=== PATIENT | female | born 1985 | race Caucasian/White ===

== ENCOUNTER 2020-01-01 08:37 | Inpatient (IN) | payer BC ==
[~2020-01-01 08:37] MED LIST: Carboprost Tromethamine 250 MCG/1 ML Amp IM PRN; Lactated Ringers 1,000 ML IV ONE; Lidocaine 1% 30 ML SDV INJECT PRN; Methylergonovine 0.2 MG/1 ML Amp IM PRN; Misoprostol 400 MCG (4 X 100 MCG TAB) RECTAL PRN; Misoprostol 50 MCG (1/2 of 100 MCG) Tab VAG PRN; Ondansetron 4 MG/2 ML SDV IVPUSH PRN; Oxytocin/Normal Saline 30 UNIT/500 ML BAG IV SCH; Sodium Chloride 0.9% 10 ML Syringe FLUSH PRN; Tranexamic Acid 1,000 MG in Sodium Chloride 0.9% 100 ML IV PRN
[2020-01-01] MEDS: Lactated Ringers 1,000 ML IV SCH ×4 (15:01→18:29)
[2020-01-01] MEDS ORDERED: EPINEPHrine 1 MG/1 ML Amp ONE (16:20)
[2020-01-01] MEDS ORDERED: fentaNYL 100 MCG/2 ML SDV ONE (16:20)
[2020-01-01] MEDS ORDERED: Sodium Bicarbonate 4.2% 2.5 MEQ/5 ML SDV ONE (16:21)
[2020-01-01] MEDS ORDERED: ePHEDrine 50 MG/ML SDV ONE ×2 (16:33→17:17)
--- NOTE | 2020-01-01 16:46 | PCM.SN.2 ---
- Free Text/Narrative Note: Intrathecal. Sitting position, sterile prep and drape. 1% lidocaine w bicarb for skinwheal to L2 L3 interspace, introducer, 24 ga pencan x 1. Pos CSF, neg heme, neg parasthesia. 0.1 ml pf 1:1000 epi, 20 mcg pf sufenta, 30 mcg pf fentanyl, 0.4 ml pf ns and 6 mg of 0.75% marcaine injected after CSF aspiration. Pt to L lateral position. Procedure time 1625 to 1650
--- NOTE | 2020-01-01 19:08 | PCM.LDHP ---
L&D History of Present Illness - General Date of Service: 01/01/20 (admit H&P) Admit Problem/Dx: Patient Status Order with Admit Dx/Problem 01/01/20 08:00 Patient Status [ADT] Routine Admission Diagnosis/Problem Admission Diagnosis/Problem complications Source of Information: Patient, Family, Old Records, RN History Limitations: Reports: No Limitations - History of Present Illness Introduction:: 34yo WF in @ 39w1d for induction of labor as scheduled. Hx difficult VAVD with prolonged 2nd stage, and baby large for her pelvis. she is ready for induction and has no further questions. see notes and episode for further details. Location, : Reports: Uterus - Related Data Allergies/Adverse Reactions: Allergies Allergy/AdvReac Type Severity Reaction Status Date / Time No Known Allergies Allergy Verified 04/26/15 13:34 Home Medications: Home Meds Eletriptan Hydrobromide [Relpax] 40 mg PO DAILY 04/26/15 [History] Vit No.130/Iron/Folic [ Vitamins] 1 each PO DAILY 04/26/15 [History] Acetaminophen/HYDROcodone [[place] 325-10 MG] 1 tab PO Q4H PRN #15 tablet 04/28/15 [Rx] Docusate Sodium [Colace] 100 mg PO BID PRN #0 cap 04/28/15 [Rx] Ibuprofen [Motrin] 800 mg PO Q8H PRN #30 tablet 04/28/15 [Rx] Vit with Ca/FA/Iron [ Plus Iron] 1 each PO DAILY tablet 04/28/15 [Rx] Ascorbic Acid [Vitamin C] 250 mg PO DAILY 01/01/20 [History] Cholecalciferol (Vitamin D3) [Vitamin D] 5,000 unit PO DAILY 01/01/20 [History] Ferrous Sulfate 325 mg PO DAILY 01/01/20 [History] Past Medical History [employer] History: Reports: : 2 Para: 1 LMP (Approximate): Other OB/BYN History: one prior VAVD - Infectious Disease History Infectious Disease History: Reports: Other (See Below) Other Infectious Disease History: susceptible to varicella - Past Surgical History HEENT Surgical History: Reports: Other (See Below) Other HEENT Surgeries/Procedures: Migraines Social & Family History - Tobacco Use Tobacco Use Status *Q: Never Tobacco User Second Hand Smoke Exposure: No - Caffeine Use Caffeine Use: Reports: Coffee, Soda - Recreational Drug Use Recreational Drug Use: No - Living Situation & Occupation Living situation: Reports: , with Family Occupation: Employed (lives with Felix--Ron Stahl III, and thier first son, Norman (Ron Stahl IV) expecting another boy. 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 L&D Exam - Exam Exam: See Below - Vital Signs Vital Signs: Last Vital Signs Temp 98.1 F 01/01/20 17:30 Pulse 71 01/01/20 18:00 Resp 16 01/01/20 18:00 BP 104/77 01/01/20 18:00 Pulse Ox 97 01/01/20 16:40 Weight: 178 lb - OB Specific Contraction Duration (sec): 50-70 Contraction Frequency (min): 3-6 Contraction Intensity: Moderate - Reyna Score Reyna Score Cervix Position: Midposition Reyna Score Consistency: Medium Reyna Score Effacement: 51-70% Reyna Score Dilation: 1-2 cm - Exam General: Alert, Oriented HEENT: Conjunctiva Clear, EOMI, Hearing Intact, Mucosa Moist & [place], Nares Patent, PERRLA Neck: Supple, Trachea Midline Lungs: Clear to Auscultation, Normal Respiratory Effort Cardiovascular: Regular Rate, Regular Rhythm GI/Abdominal Exam: Normal Bowel Sounds, Soft, Non-Tender, No Abnormal Bruit, Pel vis Stable, Mass Rectal Exam: Normal Exam, Deferred Genitourinary: Normal external exam, Cervical dilitation, Enlarged uterus, Vaginal discharge Back Exam: Normal Inspection, Full Range of Motion Extremities: Normal Inspection, Normal Range of Motion, Non-Tender, No Pedal Edema, Normal Capillary Refill Skin: Warm, Dry, Intact Neurological: Cranial Nerves Intact, Reflexes Equal Bilateral Psychiatric: Alert, Normal Affect, Normal Mood - Patient Data Lab Results Last 24 hrs: Laboratory Results - last 24 hr 01/01/20 01/01/20 Range/Units 09:15 09:18 WBC 9.5 (5.0-10.0) 10^3/uL RBC 4.36 (4.2-5.4) 10^6/uL Hgb 12.4 D (12.0-16.0) g/dL Hct 37.0 (37.0-47.0) % MCV 84.9 D (80-100) fL MCH 28.4 (27.0-34.0) pg MCHC 33.5 (33.0-35.0) g/dL Plt Count 194 (150-450) 10^3/uL SARS CoV-2 RNA Rapid MARCIN Negative (NEGATIVE) Result Diagrams: 01/01/20 09:18 - Problem List (1) Term SNOMED Code(s): 14175436 ICD Code: Z34.90 - ENCNTR FOR SUPRVSN OF NORMAL , UNSP, UNSP TRIMESTER Status: Acute Current Visit: Yes (2) Immune to varicella SNOMED Code(s): 901006535 ICD Code: Z78.9 - OTHER SPECIFIED HEALTH STATUS Status: Acute Current Visit: Yes (3) Rubella non-immune status, antepartum SNOMED Code(s): 768576702 ICD Code: O99.891 - OTH DISEASES AND CONDITIONS COMPLICATING ; Z28.3 - UNDERIMMUNIZATION STATUS Status: Acute Current Visit: Yes (4) Rubella nonimmune status, delivered, current hospitalization SNOMED Code(s): 370518245 ICD Code: O99.892 - OTH DISEASES AND CONDITIONS COMPLICATING CHILDBIRTH; Z28.3 - UNDERIMMUNIZATION STATUS Status: Acute Current Visit: Yes (5) Blood type A+ SNOMED Code(s): 936083351 ICD Code: Z67.10 - TYPE A BLOOD, RH POSITIVE Status: Acute Current Visit: Yes (6) Group B Streptococcus not isolated SNOMED Code(s): 426131613 ICD Code: LPA3425 - Status: Acute Current Visit: Yes (7) Mother currently breast-feeding SNOMED Code(s): 115694341 ICD Code: Z39.1 - ENCOUNTER FOR CARE AND EXAMINATION OF LACTATING MOTHER Status: Acute Current Visit: Yes Problem List Initiated/Reviewed/Updated: Yes Orders Last 24hrs: Active Orders 24 hr Category Date Time Status Patient Status [ADT] Routine ADT 01/01/20 08:00 Active Communication Order [RC] ASDIRECTED Care 01/01/20 08:00 Active Communication Order [RC] ASDIRECTED Care 01/01/20 08:00 Active Communication Order [RC] ASDIRECTED Care 01/01/20 08:00 Active Communication Order [RC] ASDIRECTED Care 01/01/20 08:00 Active Communication Order [RC] ASDIRECTED Care 01/01/20 08:00 Active Communication Order [RC] ASDIRECTED Care 01/01/20 08:00 Active Monitoring [RC] PER UNIT ROUTINE Care 01/01/20 08:00 Active Insert Urinary Catheter [OM.PC] Q24H Care 01/01/20 18:00 Ordered Notify Provider Vital Signs OB [RC] ASDIRECTED Care 01/01/20 08:00 Active Notify Provider [RC] PRN Care 01/01/20 08:00 Active Notify Provider [RC] PRN Care 01/01/20 08:00 Active Notify Provider [RC] PRN Care 01/01/20 08:00 Active Notify Provider [RC] STAT Care 01/01/20 08:00 Active Pump Management, Intrathecal [RC] ASDIRECTED Care 01/01/20 08:00 Active Up ad Fide [RC] ASDIRECTED Care 01/01/20 08:00 Active Urinary Catheter Assessment [RC] ASDIRECTED Care 01/01/20 18:25 Active Vaginal Exam [RC] PRN Care 01/01/20 08:00 Active Acetaminophen [TylenoL] Med 01/01/20 08:00 Active 650 mg PO Q4H PRN Carboprost Tromethamine [Hemabate DS] Med 01/01/20 08:00 Active 250 mcg IM ASDIRECTED PRN Lidocaine 1% [Xylocaine-MPF 1%] Med 01/01/20 08:00 Active 30 ml INJECT ASDIRECTED PRN Methylergonovine [Methergine] Med 01/01/20 08:00 Active 0.2 mg IM ASDIRECTED PRN Ondansetron [Zofran] Med 01/01/20 08:00 Active 4 mg IVPUSH Q4H PRN Oxytocin/Normal Saline [Pitocin in NS 30 UNIT/500 ML] Med 01/01/20 08:00 Active 30 unit in 500 ml IV TITRATE Sodium Chloride 0.9% [Saline Flush] Med 01/01/20 08:00 Active 10 ml FLUSH ASDIRECTED PRN Tranexamic Acid [Cyklokapron] 1,000 mg Med 01/01/20 08:00 Active Sodium Chloride 0.9% [Normal Saline] 100 ml IV ONETIME miSOPROStoL [Cytotec] Med 01/01/20 08:00 Active 50 mcg VAG Q4H PRN miSOPROStoL [Cytotec] Med 01/01/20 08:00 Active 800 mcg RECTAL ASDIRECTED PRN Saline Lock Insert [OM.PC] Routine Oth 01/01/20 08:00 Ordered Medication Orders Acetaminophen (Tylenol) 650 mg PO Q4H PRN PRN Reason: Pain (Mild 1-3) and fever Carboprost Tromethamine (Hemabate Ds) 250 mcg IM ASDIRECTED PRN PRN Reason: HEMORRHAGE Tranexamic Acid 1,000 mg/ (Sodium Chloride) 110 mls @ 660 mls/hr IV ONETIME PRN PRN Reason: Bleeding Oxytocin/Sodium Chloride (Pitocin In Ns 30 Unit/500 Ml) 30 unit in 500 mls @ 2 mls/hr IV TITRATE IVANNA; Protocol Last Titration: 01/01/20 16:56 Dose: 3 munits/min, 3 mls/hr Documented by: Admin: 01/01/20 15:02 Dose: 2 munits/min, 2 mls/hr Documented by: TRESA Lactated Ringer's (Ringers, Lactated) 1,000 mls @ 125 mls/hr IV ASDIRECTED IVANNA Last Admin: 01/01/20 18:29 Dose: 125 mls/hr Documented by: Infusion: 01/01/20 18:29 Dose: 125 mls/hr Documented by: Admin: 01/01/20 16:40 Dose: 125 mls/hr Documented by: Infusion: 01/01/20 16:40 Dose: 125 mls/hr Documented by: Admin: 01/01/20 16:21 Dose: 125 mls/hr Documented by: Infusion: 01/01/20 16:21 Dose: 125 mls/hr Documented by: Admin: 01/01/20 15:01 Dose: 125 mls/hr Documented by: TRESA Lidocaine HCl (Xylocaine-Mpf 1%) 30 ml INJECT ASDIRECTED PRN PRN Reason: Perineal Repair Methylergonovine Maleate (Methergine) 0.2 mg IM ASDIRECTED PRN PRN Reason: Hemorrhage Misoprostol (Cytotec) 800 mcg RECTAL ASDIRECTED PRN PRN Reason: Hemorrhage Misoprostol (Cytotec) 50 mcg VAG Q4H PRN PRN Reason: cervical ripening Last Admin: 01/01/20 10:13 Dose: 50 mcg Documented by: TRESA Ondansetron HCl (Zofran) 4 mg IVPUSH Q4H PRN PRN Reason: Nausea/Vomiting Last Admin: 01/01/20 16:17 Dose: 4 mg Documented by: TRESA Sodium Chloride (Saline Flush) 10 ml FLUSH ASDIRECTED PRN PRN Reason: Keep Vein Open Assessment/Plan Comment:: assessment: 34yo @ 39w1d in for induction A+ blood type GBS negative Rubella non-immune hx Guillian-[place]'--not a flu shot candidate, has had Tdap COVID negative on admit hx difficult VAVD delivery with baby large for pelvis Plan: admit Cytotec 50mcg, repeat if indicated, or consider AROM, or pitocin induction as reviewed. other routine admit orders monitor closely. anticipate vaginal delivery. all questions answered. will give MMR after delivery. hmb
[2020-01-01] MEDS ORDERED: Zolpidem 5 MG Tab PO PRN (19:13)
[2020-01-01] MEDS ORDERED: Benzocaine/Menthol 20%-0.5% Spray 56 GM Canister TOP PRN (19:13)
[2020-01-01] MEDS ORDERED: Simethicone 80 MG Tab.Chew PO PRN (19:13)
[2020-01-01] MEDS ORDERED: Measles, Mumps & Rubella Vaccine 0.5 ML SDV SUBCUT ONE (19:13)
--- NOTE | 2020-01-01 19:13 | PCM.DEL ---
L & D Note - General Info Date of Service: 01/01/20 (Time of delivery 1845) Mother's Due Date: 01/07/20 (39w1d) - Delivery Note Labor: Augmented by ARM, Augmented by Oxytocin Cervical Ripening Method: Misoprostil Delivery Outcome: Livebirth Infant Delivery Method: Spontaneous Vaginal Delivery-Single Infant Delivery Mode: Spontaneous Presentation: Left Occiput Anterior (LILLI) Nuchal Cord: Reduced Prep: Povidone-Iodine (Betadine Anesthesia Type: Intrathecal Amniotic Fluid Description: Clear Episiotomy Type: None Laceration: 1st Degree, Labial Suture type: Vicryl Suture size: 3-0 Placenta: Intact, Expressed Cord: 3 Vessels Estimated Blood Loss: 400 Resuscitation Needed: Yes [place]: Bulb Syringe, Stimulated, Purle[place] Used Provider: Veronica Graham Score 1 min: 7 Score 5 min: 9 Second Stage Interventions: Reports: Encouragement Given, Laboring Down Delivery Comments (Free Text/Narrative):: Viji delivered vaginally without complications. viable male 8lb/ 3615g to mother's chest for skin to skin bonding. APGARs 7 & 9 slight tear in left labia minora --a couple interrupted 3-0 sutures for cosmesis placed. otherwise intact. see remainder of delivery note for details. hmb Induction Criteria - Reyna Score Reyna Score Dilation: 1-2 cm Reyna Score Effacement: 40-50% Reyna Score Consistency: Medium Reyna Score Cervix Position: Midposition Reyna Score Presenting Part: Reports: Cephalic - Induction Gestational Age >/= 39 wks: Yes Estimated Pelvis: Reports: Adequate Reassuring Monitoring Strip: Yes Absence of Tachy Systole: Yes - Augmentation Estimated Pelvis: Reports: Adequate Weight Estimated:: Reports: AGA Reassuring Monitoring Strip: Yes Absence of Tachy Systole: Yes - General Info Date of Service: 01/01/20 (time of delivery 1845) - Patient Data Vitals - Most Recent: Last Vital Signs Temp 98.1 F 01/01/20 17:30 Pulse 71 01/01/20 18:00 Resp 16 01/01/20 18:00 BP 104/77 01/01/20 18:00 Pulse Ox 97 01/01/20 16:40 Weight - Most Recent: 178 lb I&O - Last 24 Hours: Intake & Output 01/01/20 01/01/20 01/01/20 06:59 14:59 22:59 Output Total 500 Balance -500 Lab Results Last 24 Hours: Laboratory Results - last 24 hr 01/01/20 01/01/20 Range/Units 09:15 09:18 WBC 9.5 (5.0-10.0) 10^3/uL RBC 4.36 (4.2-5.4) 10^6/uL Hgb 12.4 D (12.0-16.0) g/dL Hct 37.0 (37.0-47.0) % MCV 84.9 D (80-100) fL MCH 28.4 (27.0-34.0) pg MCHC 33.5 (33.0-35.0) g/dL Plt Count 194 (150-450) 10^3/uL SARS CoV-2 RNA Rapid MARCIN Negative (NEGATIVE) Med Orders - Current: Current Medications Acetaminophen (Tylenol) 650 mg PO Q4H PRN PRN Reason: Pain (Mild 1-3) and fever Carboprost Tromethamine (Hemabate Ds) 250 mcg IM ASDIRECTED PRN PRN Reason: HEMORRHAGE Tranexamic Acid 1,000 mg/ (Sodium Chloride) 110 mls @ 660 mls/hr IV ONETIME PRN PRN Reason: Bleeding Oxytocin/Sodium Chloride (Pitocin In Ns 30 Unit/500 Ml) 30 unit in 500 mls @ 2 mls/hr IV TITRATE IVANNA; Protocol Last Titration: 01/01/20 16:56 Dose: 3 munits/min, 3 mls/hr Documented by: Lactated Ringer's (Ringers, Lactated) 1,000 mls @ 125 mls/hr IV ASDIRECTED IVANNA Last Admin: 01/01/20 18:29 Dose: 125 mls/hr Documented by: Lidocaine HCl (Xylocaine-Mpf 1%) 30 ml INJECT ASDIRECTED PRN PRN Reason: Perineal Repair Methylergonovine Maleate (Methergine) 0.2 mg IM ASDIRECTED PRN PRN Reason: Hemorrhage Misoprostol (Cytotec) 800 mcg RECTAL ASDIRECTED PRN PRN Reason: Hemorrhage Misoprostol (Cytotec) 50 mcg VAG Q4H PRN PRN Reason: cervical ripening Last Admin: 01/01/20 10:13 Dose: 50 mcg Documented by: Ondansetron HCl (Zofran) 4 mg IVPUSH Q4H PRN PRN Reason: Nausea/Vomiting Last Admin: 01/01/20 16:17 Dose: 4 mg Documented by: Sodium Chloride (Saline Flush) 10 ml FLUSH ASDIRECTED PRN PRN Reason: Keep Vein Open Discontinued Medications Ephedrine Sulfate (Ephedrine Sulfate) Confirm Administered Dose 50 mg .ROUTE .STK-MED ONE Stop: 01/01/20 16:34 Ephedrine Sulfate (Ephedrine Sulfate) Confirm Administered Dose 50 mg .ROUTE .STK-MED ONE Stop: 01/01/20 17:18 Epinephrine HCl (Adrenalin) Confirm Administered Dose 1 mg .ROUTE .STK-MED ONE Stop: 01/01/20 16:21 Last Admin: 01/01/20 16:59 Dose: Not Given Documented by: Fentanyl (Sublimaze) Confirm Administered Dose 100 mcg .ROUTE .STK-MED ONE Stop: 01/01/20 16:21 Last Admin: 01/01/20 17:00 Dose: Not Given Documented by: Lactated Ringer's (Ringers, Lactated) 1,000 mls @ 999 mls/hr IV BOLUS ONE Stop: 01/01/20 09:00 Sodium Bicarbonate (Sodium Bicarbonate 4.2%) Confirm Administered Dose 2.5 meq .ROUTE .STK-MED ONE Stop: 01/01/20 16:22 Last Admin: 01/01/20 17:00 Dose: Not Given Documented by: Sufentanil Citrate (Sufenta) Confirm Administered Dose 50 mcg .ROUTE .STK-MED ONE Stop: 01/01/20 16:22 Last Admin: 01/01/20 17:00 Dose: Not Given Documented by: - Problem List & Annotations (1) Vaginal delivery SNOMED Code(s): 102333454 Code(s): O80 - ENCOUNTER FOR FULL-TERM UNCOMPLICATED DELIVERY Status: Acute Current Visit: Yes - Problem List Review Problem List Initiated/Reviewed/Updated: Yes - My Orders Last 24 Hours: My Active Orders 01/01/20 08:00 Patient Status [ADT] Routine Communication Order [RC] ASDIRECTED Communication Order [RC] ASDIRECTED Communication Order [RC] ASDIRECTED Communication Order [RC] ASDIRECTED Communication Order [RC] ASDIRECTED Communication Order [RC] ASDIRECTED Monitoring [RC] PER UNIT ROUTINE Notify Provider Vital Signs OB [RC] ASDIRECTED Notify Provider [RC] PRN Notify Provider [RC] PRN Notify Provider [RC] PRN Notify Provider [RC] STAT Pump Management, Intrathecal [RC] ASDIRECTED Up ad Fide [RC] ASDIRECTED Vaginal Exam [RC] PRN Acetaminophen [TylenoL] 650 mg PO Q4H PRN Carboprost Tromethamine [Hemabate DS] 250 mcg IM ASDIRECTED PRN Lidocaine 1% [Xylocaine-MPF 1%] 30 ml INJECT ASDIRECTED PRN Methylergonovine [Methergine] 0.2 mg IM ASDIRECTED PRN Ondansetron [Zofran] 4 mg IVPUSH Q4H PRN Oxytocin/Normal Saline [Pitocin in NS 30 UNIT/500 ML] 30 unit in 500 ml IV TITRATE Sodium Chloride 0.9% [Saline Flush] 10 ml FLUSH ASDIRECTED PRN Tranexamic Acid [Cyklokapron] 1,000 mg Sodium Chloride 0.9% [Normal Saline] 100 ml IV ONETIME miSOPROStoL [Cytotec] 50 mcg VAG Q4H PRN miSOPROStoL [Cytotec] 800 mcg RECTAL ASDIRECTED PRN Saline Lock Insert [OM.PC] Routine 01/01/20 18:00 Insert Urinary Catheter [OM.PC] Q24H 01/01/20 18:25 Urinary Catheter Assessment [RC] ASDIRECTED - Plan Plan:: continue to follow pospartum orders and cares. likely home PPD #2. further management pending her clinical course. teresita
[2020-01-01] MEDS: Docusate Sodium 100 MG Cap PO PRN (20:19)
[2020-01-01] MEDS: Acetaminophen 325 MG Tab PO PRN (20:19)
[2020-01-01] MEDS: Ibuprofen 800 MG Tab PO PRN (20:20)
[2020-01-02] MEDS: Acetaminophen 325 MG Tab PO PRN (06:29)
[2020-01-02] MEDS: Ibuprofen 800 MG Tab PO PRN ×2 (06:30→19:36)
[2020-01-02] MEDS ORDERED: Prenatal Multivitamin with Calcium/Folic Acid/Iron Tab PO SCH (09:00)
[2020-01-02] MEDS: Docusate Sodium 100 MG Cap PO PRN ×2 (09:12→19:36)
[2020-01-02 09:25] VITALS: PULSE 87
--- NOTE | 2020-01-02 16:07 | PCM.DCSUM1 ---
Discharge Summary - Hospital Course Free Text/Narrative:: Viji is a delightful 34yo G2 now P2 who came in on 01-01-2020 @ 39w1d for induction of labor, and subsequently delivered a viable male @ 1846 without complications vaginally over an intact perineum, weighing 3615/8# with scores of 7 & 9. Baby is and doing well. exam WNL and circ done today. mom has also done well, and is requesting early discharge after 24 hours tonight. hmb HPI Initial Comments: as above. Brief History: as above, and see notes and admission H&P Diagnosis: Stroke: No - Discharge Data Discharge Date: 01/02/20 (PPD #1) Discharge Disposition: Home, Self-Care 01 Condition: Good - Referral to Home Health Primary Care Physician: Veronica Graham MD - Discharge Diagnosis/Problem(s) (1) Vaginal delivery SNOMED Code(s): 326553126 ICD Code: O80 - ENCOUNTER FOR FULL-TERM UNCOMPLICATED DELIVERY Status: Acute Current Visit: Yes - Patient Summary/Data Complications: none Consults: Consultations 01/01/20 19:13 Consult to Tool Supervisor [CONS] Routine Hospital Course: hospital course uneventful. She is requesting early discharge at 24 hours. going well. she has remained afebrile with VSS. flow decreasing and no complaints. voiding eating and doing well. ambulating without difficulty. fundus firm. will discharge her home today per her request, and see her back for 6 week check, and sooner prn. all questions answered. she has received her rubella vaccination. hmb condition at discuarge good will take PNV, and extra iron, Vit C, ibuprofen prn. hmb - Patient Instructions Diet: Usual Diet as Tolerated Activity: As Tolerated Showering/Bathing: May Shower Notify Provider of: Fever, Increased Pain, Swelling and Redness, Drainage, Nausea and/or Vomiting - Discharge Plan *PRESCRIPTION DRUG MONITORING PROGRAM REVIEWED*: Not Applicable *COPY OF PRESCRIPTION DRUG MONITORING REPORT IN PATIENT LELIA: Not Applicable Home Medications: Home Meds Eletriptan Hydrobromide [Relpax] 40 mg PO DAILY 04/26/15 [History] Vit No.130/Iron/Folic [ Vitamins] 1 each PO DAILY 04/26/15 [History] Acetaminophen/HYDROcodone [[place] 325-10 MG] 1 tab PO Q4H PRN #15 tablet 04/28/15 [Rx] Docusate Sodium [Colace] 100 mg PO BID PRN #0 cap 04/28/15 [Rx] Ibuprofen [Motrin] 800 mg PO Q8H PRN #30 tablet 04/28/15 [Rx] Vit with Ca/FA/Iron [ Plus Iron] 1 each PO DAILY tablet 04/28/15 [Rx] Ascorbic Acid [Vitamin C] 250 mg PO DAILY 01/01/20 [History] Cholecalciferol (Vitamin D3) [Vitamin D] 5,000 unit PO DAILY 01/01/20 [History] Ferrous Sulfate 325 mg PO DAILY 01/01/20 [History] Patient Handouts: Care of a Perineal Tear, Care After Vaginal Delivery - Discharge Summary/Plan Comment DC Time >30 min.: No Discharge Summary/Plan Comment: follow up in 6 weeks for check and sooner prn. hmb - Patient Data Vitals - Most Recent: Last Vital Signs Temp 98.5 F 01/02/20 08:00 Pulse 87 01/02/20 08:00 Resp 16 01/02/20 08:00 BP 100/62 01/02/20 08:00 Pulse Ox 97 01/02/20 08:00 Weight - Most Recent: 178 lb I&O - Last 24 hours: Intake & Output 01/02/20 01/02/20 01/02/20 06:59 14:59 22:59 Output Total 1000 Balance -1000 Med Orders - Current: Current Medications Acetaminophen (Tylenol) 650 mg PO Q4H PRN PRN Reason: Pain (Mild 1-3) and fever Last Admin: 01/02/20 06:29 Dose: 650 mg Documented by: Benzocaine/Menthol (Dermoplast Pain Relief [place]) 0 gm TOP Q4H PRN PRN Reason: Perineal comfort measures Last Admin: 01/01/20 20:18 Dose: 1 spray Documented by: Carboprost Tromethamine (Hemabate Ds) 250 mcg IM ASDIRECTED PRN PRN Reason: HEMORRHAGE Docusate Sodium (Colace) 100 mg PO BID PRN PRN Reason: Constipation Last Admin: 01/02/20 09:12 Dose: 100 mg Documented by: Tranexamic Acid 1,000 mg/ (Sodium Chloride) 110 mls @ 660 mls/hr IV ONETIME PRN PRN Reason: Bleeding Oxytocin/Sodium Chloride (Pitocin In Ns 30 Unit/500 Ml) 30 unit in 500 mls @ 2 mls/hr IV TITRATE IVANNA; Protocol Last Titration: 01/01/20 19:35 Dose: Infused Documented by: Lactated Ringer's (Ringers, Lactated) 1,000 mls @ 125 mls/hr IV ASDIRECTED IVANNA Last Admin: 01/01/20 18:29 Dose: 125 mls/hr Documented by: Ibuprofen (Motrin) 800 mg PO Q8H PRN PRN Reason: Mild Pain or Fever Last Admin: 01/02/20 06:30 Dose: 800 mg Documented by: Lidocaine HCl (Xylocaine-Mpf 1%) 30 ml INJECT ASDIRECTED PRN PRN Reason: Perineal Repair Methylergonovine Maleate (Methergine) 0.2 mg IM ASDIRECTED PRN PRN Reason: Hemorrhage Misoprostol (Cytotec) 800 mcg RECTAL ASDIRECTED PRN PRN Reason: Hemorrhage Misoprostol (Cytotec) 50 mcg VAG Q4H PRN PRN Reason: cervical ripening Last Admin: 01/01/20 10:13 Dose: 50 mcg Documented by: Ondansetron HCl (Zofran) 4 mg IVPUSH Q4H PRN PRN Reason: Nausea/Vomiting Last Admin: 01/01/20 16:17 Dose: 4 mg Documented by: Prenat Multivit/[place]/Iron/Folic Ac ( Plus Iron) 1 each PO DAILY IVANNA Last Admin: 01/02/20 09:12 Dose: 1 each Documented by: Simethicone (Simethicone) 80 mg PO Q4H PRN PRN Reason: Gas Sodium Chloride (Saline Flush) 10 ml FLUSH ASDIRECTED PRN PRN Reason: Keep Vein Open Witch Gaby (Medi-Pads) 1 each TOP Q4HR PRN PRN Reason: Perineal Comfort Measure Last Admin: 01/02/20 09:13 Dose: 1 pad Documented by: Zolpidem Tartrate (Ambien) 5 mg PO BEDTIME PRN PRN Reason: Insomnia Discontinued Medications Ephedrine Sulfate (Ephedrine Sulfate) Confirm Administered Dose 50 mg .ROUTE .STK-MED ONE Stop: 01/01/20 16:34 Last Admin: 01/01/20 22:43 Dose: Not Given Documented by: Ephedrine Sulfate (Ephedrine Sulfate) Confirm Administered Dose 50 mg .ROUTE .STK-MED ONE Stop: 01/01/20 17:18 Last Admin: 01/01/20 22:44 Dose: Not Given Documented by: Epinephrine HCl (Adrenalin) Confirm Administered Dose 1 mg .ROUTE .STK-MED ONE Stop: 01/01/20 16:21 Last Admin: 01/01/20 16:59 Dose: Not Given Documented by: Fentanyl (Sublimaze) Confirm Administered Dose 100 mcg .ROUTE .STK-MED ONE Stop: 01/01/20 16:21 Last Admin: 01/01/20 17:00 Dose: Not Given Documented by: Lactated Ringer's (Ringers, Lactated) 1,000 mls @ 999 mls/hr IV BOLUS ONE Stop: 01/01/20 09:00 Last Admin: 01/01/20 22:43 Dose: Not Given Documented by: Measles/Mumps/Rubella Vaccine Live (M-M-R Ii Vaccine) 0.5 ml SUBCUT .ONCE ONE Stop: 01/01/20 19:14 Last Admin: 01/01/20 20:20 Dose: 0.5 ml Documented by: Sodium Bicarbonate (Sodium Bicarbonate 4.2%) Confirm Administered Dose 2.5 meq .ROUTE .STK-MED ONE Stop: 01/01/20 16:22 Last Admin: 01/01/20 17:00 Dose: Not Given Documented by: Sufentanil Citrate (Sufenta) Confirm Administered Dose 50 mcg .ROUTE .STK-MED ONE Stop: 01/01/20 16:22 Last Admin: 01/01/20 17:00 Dose: Not Given Documented by:
[2020-01-02 20:06] VITALS: BP 103/65
[2020-01-02] MEDS ORDERED: fentaNYL 100 MCG/2 ML SDV ITHECAL ONE (20:18)
[2020-01-02] MEDS ORDERED: Sodium Bicarbonate 4.2% 2.5 MEQ/5 ML SDV ONE (20:18)
[2020-01-02] MEDS ORDERED: EPINEPHrine 1 MG/1 ML Amp ONE (20:18)
== END 2020-01-02 20:19 | disposition home or self-care (01) | DRG 560 ==
LOC: EDSTATUS 08:37 → UNDOADMOB 08:38 → OBSVTOIN 08:38 → INTOOBSV 08:38 → DL.OB 08:38 → OBSVTOIN 18:46
PROVIDERS: ADMIT Family Medicine; ATTEND Family Medicine
PROC: 10E0XZZ Delivery of Products of Conception, External Approach (ICD-10-PCS; principal; 2020-01-01)
PROC: 0HQ9XZZ Repair Perineum Skin, External Approach (ICD-10-PCS; 2020-01-01)
DX: O70.0 First degree perineal laceration during delivery (principal); Z3A.39 39 weeks gestation of pregnancy; Z37.0 Single live birth; Z20.828 Contact with and (suspected) exposure to other viral communicable diseases; Z67.10 Type A blood, Rh positive
CPT/HCPCS: 01967; 36415; 51701; 59025; 59409; 85027; 90471; 90707; A9270-GY; J0171; J2405; J2590; J3010; J7120; U0002